=== PATIENT | female | born 1995 | race Caucasian/White ===

== ENCOUNTER 2024-02-16 17:16 | Emergency (ER) | payer OTHER, SELFPAY ==
[2024-02-16 17:21] VITALS: BP 133/92
--- NOTE | 2024-02-16 18:01 | ED.GENMED ---
History of Present Illness
General
Chief Complaint: Problems
Time Seen by Provider: 02/16/24 17:50
Travel History
Have you had any contact with someone who has COVID-19?: No
Do you have any symptoms of coronavirus? Fever > 100 degrees, chills, cough, shortness of breath, sore throat, loss of taste or smell, muscle aches, or headache?: No
History of Present Illness
History of Present Illness:
28-year-old female with history of endometriosis and PCOS presents to the emergency department for evaluation of lower abdominal cramping discomfort with home positive test. Last known period was in November, states that she typically has
missed periods secondary to her PCOS. Denies any vaginal bleeding or discharge. She went to an outpatient care center today where it was advised that she come to the emergency department due to her pain. She has not yet had any type of
screening ultrasound at this point.
Review of Systems
Review of Systems
Allergies reviewed?: Yes
All Other Systems: ROS reviewed and negative except as documented in HPI and ROS
Phy Exam
Physical Exam
Physical Exam:
GEN: Well appearing, NAD, WDWN
HEENT: Oral mucosa moist, no scleral icterus
Cardiac: Regular rate
Lung: No respiratory distress, no tachypnea
MSK: No gross deformity or injuries
Skin: Good color, no pallor or jaundice, no rashes
Neuro: AO x3, moves all extremities freely
Psych: Calm, cooperative
Course
Orders/Labs/Results
Orders:
Orders
02/16/24 17:44
US Pelvis W Transvag Combined Urgent
Reason For Exam: cramping
02/16/24 17:54
Beta HCG Quantitative Urgent
Is this a screen?: No
CBC/With Diff [Complete Blood Count/With Diff] Urgent
Comprehensive Metabolic Panel Urgent
Abnormal Lab Results
02/16/24
17:54
Absolute Neuts (auto) 7.0 H 10^3/uL
(1.4-6.5)
Absolute Monos (auto) 0.7 H 10^3/uL
(0.1-0.6)
02/16/24 17:54
02/16/24 17:54
Vital Signs
Initial and Last Documented VS:
Initial Vital Signs
Temp Pulse Resp BP Pulse Ox
98.7 F 93 18 133/92 99
02/16/24 17:21 02/16/24 17:21 02/16/24 17:21 02/16/24 17:21 02/16/24 17:21
Last Documented Vital Signs
Temp Pulse Resp BP Pulse Ox
98.7 F 93 18 133/92 99
02/16/24 17:21 02/16/24 17:21 02/16/24 17:21 02/16/24 17:21 02/16/24 17:21
Information
Weeks gestation: N/A
Location: N/A
MDM/Problems Addressed
MDM/Problems Addressed:
Ultrasound shows no evidence for IUP. Likely early gestation given the low hCG quant levels. Patient advised to follow-up as an outpatient with [facility] within 1 to 2 weeks for repeat hCG and ultrasound
*Critical Care Note
Total Time (30-74mins, 75-104mins- exclusive of procedures): Not Applicable
ED Attending Note
-
Portions of this chart may have been created with voice recognition software.� Occasional wrong word or��sound alike� substitutions may have occurred due to the inherent limitations of voice recognition software.
Discharge Plan
Departure
Patient Disposition: Home (Routine Discharge)
Date of Disposition: 02/16/24
Time of Disposition: 18:44
Patient with high blood pressure during this ER visit?: No
Discharge Problem:
Early stage of
Instructions: symptoms
Referrals:
Kaity Monet MD [Active] -
Activity Restrictions/Additional Instructions:
At this time your ultrasound shows no active evidence of a within the uterus however it is likely due to the being quite early. Follow-up in 1 to 2 weeks with your [facility] of choice to obtain repeat hormone levels and
potentially a repeat ultrasound
If you develop severe unrelenting pain or vaginal bleeding please return to the emergency department for further assessment
Interventions
Interventions:
*Risk Screen - Suicide Last Done: 02/16/24 17:27
*General Assessment Last Done: 02/16/24 17:27
*Neglect/Abuse Screening Last Done: 02/16/24 17:27
ED- Fall Risk Assessment Last Done: 02/16/24 17:57
*Nursing Disposition Last Done: 02/16/24 18:52
ED-Female Genitourinary Assessment Last Done: 02/16/24 17:56
Discharge Date and Time
Discharge Date/Time: 02/16/24 18:54
Print Language: WOLOF
[2024-02-16 18:02] LABS: % Basophils 0.3 % (0-2); % Eosinophils 1.3 % (0-6); % Immature Granulocytes 0.3 % (0-0.5); % Lymphocytes 24.2 % (20.5-51.1); % Monocytes 7.1 % (1.7-9.3); % Neutrophils 66.8 % (42.2-75.2); Absolute Eosinophils 0.1 10^3/uL (0-0.7); Absolute Lymphocytes 2.5 10^3/uL (1.2-3.4); Absolute Monocytes 0.7 10^3/uL (0.1-0.6); Hematocrit 41.2 % (37.0-47.0); Mean Corpuscular Hgb 30.8 pg (27.0-31.0); Mean Corpuscular Volume 90.7 fL (81.0-99.0); Mean Platelet Volume 9.1 fL (7.4-10.4); Nucleated Red Blood Cells % 0 %; Platelet Count 269 10^3/uL (130-400); Red Blood Cell Count 4.54 10^6/uL (4.20-5.40); Red Cell Dist. Width 12.7 % (11.5-14.5); White Blood Cell Count 10.4 10^3/uL (4.8-10.8)
[2024-02-16 18:16] LABS: ALT (SGPT) 20 U/L (0-35); AST (SGOT) 24 U/L (14-36); Albumin 4.7 g/dl (3.5-5.0); Alkaline Phosphatase 71 U/L (38-126); Blood Urea Nitrogen 11 mg/dl (7-17); Calcium 9.6 mg/dl (8.4-10.2); Carbon Dioxide 22 mmol/L (22-30); Chloride 104 mmol/L (98-107); Glucose 85 mg/dl (70-99); Potassium 4.3 mmol/L (3.5-5.1); Sodium 139 mmol/L (135-145); Total Bilirubin 0.4 mg/dl (0.2-1.3); Total Protein 7.4 g/dl (6.3-8.2); eGFR > 60.00
[2024-02-16 18:32] LABS: Beta HCG Quantitative 348.53 mIU/ml
== END 2024-02-16 18:54 | disposition home or self-care (01) ==
LOC: EMR 17:16
PROVIDERS: EMERGENCY PHYSICIAN Emergency Medicine; FAMILY PHYSICIAN Family Medicine
DX: O26.899 Other specified pregnancy related conditions, unspecified trimester (principal); R10.30 Lower abdominal pain, unspecified; E28.2 Polycystic ovarian syndrome; N80.9 Endometriosis, unspecified
CPT/HCPCS: 99284; 76830; 76856; 80053; 84702; 85025

== ENCOUNTER → 2024-03-22 09:19 | Outpatient (REF) | payer OTHER, SELFPAY | LOC: HWRAD 09:19 | PROVIDERS: ATTENDING PHYSICIAN Advanced Practice Midwife; FAMILY PHYSICIAN Family Medicine | DX: Z36.87 Encounter for antenatal screening for uncertain dates (principal); Z34.01 Encounter for supervision of normal first pregnancy, first trimester | CPT/HCPCS: 76801 ==

== ENCOUNTER → 2024-06-07 15:54 | Outpatient (REF) | payer OTHER, SELFPAY | LOC: PNTC 15:54 | PROVIDERS: ATTENDING PHYSICIAN Nurse Practitioner Women's Health | DX: Z34.82 Encounter for supervision of other normal pregnancy, second trimester (principal) | CPT/HCPCS: 76805 ==

== ENCOUNTER → 2024-12-29 14:14 | Outpatient (REF) | payer OTHER, SELFPAY | LOC: WDC 14:14 | DX: N63.20 Unspecified lump in the left breast, unspecified quadrant (principal) | CPT/HCPCS: 76642 ==